=== PATIENT | male | born 1965 | race Caucasian/White ===

== ENCOUNTER 2025-01-21 06:31 | Day surgery (SDC) | payer OTHER, SELFPAY | END 2025-01-21 14:37 | disposition home or self-care (01) | LOC: GI 06:31 | PROVIDERS: ATTENDING PHYSICIAN Specialist | DX: Z12.11 Encounter for screening for malignant neoplasm of colon (principal); Z80.0 Family history of malignant neoplasm of digestive organs; K57.30 Diverticulosis of large intestine without perforation or abscess without bleeding; D12.3 Benign neoplasm of transverse colon; K62.1 Rectal polyp | CPT/HCPCS: 45380; 88305 ==